=== PATIENT | male | born 1985 ===

== ENCOUNTER 2020-04-25 17:54 | Emergency (ER) | payer SELFPAY ==
--- NOTE | 2020-04-25 19:18 | RAD ---
EXAM: 2 views of the neck soft tissue HISTORY: Possible foreign body stuck in throat COMPARISON: None FINDINGS: There is no evidence of radio opaque foreign body. No prevertebral soft tissue swelling is seen. Th e bones are unremarkable. IMPRESSION: Unremarkable exam
[2020-04-25] MEDS ORDERED: Ibuprofen 800 MG TAB ONE (20:35)
[2020-04-25] MEDS ORDERED: predniSONE 20 MG TAB ONE (20:35)
== END 2020-04-25 20:40 | disposition home or self-care (01) ==
LOC: ERS 17:54
DX: S10.11XA Abrasion of throat, initial encounter (principal); W22.8XXA Striking against or struck by other objects, initial encounter
CPT/HCPCS: 70360; J7512